=== PATIENT | male | born 1955 | race Caucasian/White ===

== ENCOUNTER 2024-01-12 17:06 | Emergency (ER) | payer BC, MEDICARE ==
[2024-01-12 17:42] VITALS: TEMP 98.3
[2024-01-12 18:18] LABS: Basophils # (A) 0.1 k/uL (0-0.2); Basophils % (A) 1 %; Eosinophils # (A) 0.3 k/uL (0-0.7); Eosinophils % (A) 4 %; HCT 43.6 % (39.0-53.0); HGB 14.7 gm/dL (13.0-17.5); Lymphocytes # (A) 1.9 k/uL (1.0-4.8); Lymphocytes % (A) 30 %; MCHC 33.7 g/dL (31.0-37.0); MCV 95.1 fL (80.0-100.0); Mean Platelet Volume 9.6; Monocytes # (A) 0.5 k/uL (0-1.0); Monocytes % (A) 7 %; Neutrophils # (A) 3.6 k/uL (1.3-7.7); Neutrophils % (A) 56 %; Platelet Count 166 k/uL (150-450); RBC 4.59 m/uL (4.30-5.90); WBC 6.4 k/uL (3.8-10.6)
[2024-01-12 18:27] LABS: ALT 26 U/L (4-49); AST 41 U/L (17-59); African American GFR (CKD) 85 (>60 ml/min/1.73 sqM); Albumin 4.6 g/dL (3.5-5.0); Alkaline Phosphatase 200 U/L (38-126); Anion Gap 8 mmol/L; Blood Urea Nitrogen 16 mg/dL (9-20); Calcium 9.2 mg/dL (8.4-10.2); Carbon Dioxide 26 mmol/L (22-30); Chloride 104 mmol/L (98-107); Glucose 96 mg/dL (74-99); Non-African American GFR(CKD) 74 (>60 ml/min/1.73 sqM); Potassium 4.2 mmol/L (3.5-5.1); Sodium 138 mmol/L (137-145); Total Bilirubin 0.7 mg/dL (0.2-1.3)
[2024-01-12] MEDS: hydrALAZINE HCL 20 MG/ML 1 ML VIAL IVP STA ×2 (19:29→20:22)
--- NOTE | 2024-01-12 21:06 | ED ---
General Adult HPI - General Chief complaint: Recheck/Abnormal Lab/Rx Stated complaint: Heart pulpitations Time Seen by Provider: 01/12/24 17:15 Source: patient Mode of arrival: ambulatory Limitations: no limitations - History of Present Illness Initial comments: 68-year-old male who presents to the emergency department from urgent care. Reports that he took his blood pressure at home and it was high. He went into urgent care who recommended that he come to the emergency department. States that he usually has well-controlled blood pressure. He takes lisinopril 10 mg. Today he took a second dose when his blood pressure was high before he came into the emergency department. He was going to go through his primary care doctor however they did not have any appointments today to see him. Patient denies any associated headaches, chest pain. No changes in his urination. No fevers or chills. Denies shortness of breath. Denies any lower extremity swelling. No other alleviating, precipitating or modifying factors - Related Data Home Medications Medication Instructions Recorded Confirmed Ascorbic Acid [Vitamin C] 500 mg PO DAILY 01/12/24 01/12/24 Atorvastatin [Lipitor] 20 mg PO DAILY 01/12/24 01/12/24 Magnesium 250 mg PO DAILY 01/12/24 01/12/24 Potassium Gluconate 99 mg PO DAILY 01/12/24 01/12/24 Super B 1 tab PO DAILY 01/12/24 01/12/24 lisinopriL [Zestril] 10 mg PO DAILY 01/12/24 01/12/24 Previous Rx's Medication Instructions Recorded amLODIPine [Norvasc] 5 mg PO DAILY #30 tab 01/12/24 Allergies Allergy/AdvReac Type Severity Reaction Status Date / Time Tetanus Vaccines and Toxoid Allergy Swelling Verified 01/12/24 17:48 Review of Systems ROS Statement: Those systems with pertinent positive or pertinent negative responses have been documented in the HPI. ROS Other: All systems not noted in ROS Statement are negative. Past Medical History Past Medical History: Hypertension History of Any Multi-Drug Resistant Organisms: None Reported Past Surgical History: Cholecystectomy, Prostate Surgery Past Psychological History: No Psychological Hx Reported Smoking Status: Never smoker Past Alcohol Use History: None Reported Past Drug Use History: None Reported General Exam Limitations: no limitations General appearance: alert, in no apparent distress Head exam: Present: atraumatic, normocephalic, normal inspection Eye exam: Present: normal appearance, PERRL, EOMI. Absent: scleral icterus, conjunctival injection, periorbital swelling ENT exam: Present: normal exam, mucous membranes moist Neck exam: Present: normal inspection. Absent: tenderness, meningismus, lymphadenopathy Respiratory exam: Present: normal lung sounds bilaterally. Absent: respiratory distress, wheezes, rales, rhonchi, stridor Cardiovascular Exam: Present: regular rate, normal rhythm, normal heart sounds. Absent: systolic murmur, diastolic murmur, rubs, gallop, clicks GI/Abdominal exam: Present: soft, normal bowel sounds. Absent: distended, tenderness, guarding, rebound, rigid Extremities exam: Present: normal inspection, full ROM, normal capillary refill. Absent: tenderness, pedal edema, joint swelling, calf tenderness Back exam: Present: normal inspection Neurological exam: Present: alert, oriented X3, CN II-XII intact Psychiatric exam: Present: normal affect, normal mood Skin exam: Present: warm, dry, intact, normal color. Absent: rash Course Vital Signs 01/12/24 01/12/24 01/12/24 17:12 18:50 19:31 Temperature 98.3 F Pulse Rate 77 75 66 Respiratory 18 18 19 Rate Blood Pressure 203/119 192/102 184/101 O2 Sat by Pulse 99 96 95 Oximetry 01/12/24 01/12/24 20:20 21:32 Temperature Pulse Rate 66 75 Respiratory 19 18 Rate Blood Pressure 179/105 161/95 O2 Sat by Pulse 98 Oximetry Medical Decision Making - Medical Decision Making Was pt. sent in by a medical professional or institution (, PA, EXCAVATOR BACKHOE OPERATOR, urgent care, hospital, or longterm...) When possible be specific @ -Patient was sent in from urgent care Did you speak to anyone other than the patient for history (EMS, parent, family, police, friend...)? What history was obtained from this source @ -No Did you review nursing and triage notes (agree or disagree)? Why? @ -I reviewed and agree with nursing and triage notes Were old charts reviewed (outside hosp., previous admission, EMS record, old EKG, old radiological studies, urgent care reports/EKG's, longterm records)? Report findings @ -No old charts were reviewed Differential Diagnosis (chest pain, altered mental status, abdominal pain women, abdominal pain men, vaginal bleeding, weakness, fever, dyspnea, syncope, headache, dizziness, GI bleed, back pain, seizure, CVA, palpatations, mental health, musculoskeletal)? @ -Accelerated hypertension, chronic hypertension, medication noncompliance, TN, acute kidney failure EKG interpreted by me (3pts min.). @ -Yes and demonstrates sinus rhythm with a rate of 88. VA interval 171. QRS 102. QTc of 410. No acute ST segment elevations or depressions X-rays interpreted by me (1pt min.). @ -None done CT interpreted by me (1pt min.). @ -None done U/S interpreted by me (1pt. min.). @ -None done What testing was considered but not performed or refused? (CT, X-rays, U/S, labs)? Why? @ -None What meds were considered but not given or refused? Why? @ -None Did you discuss the management of the patient with other professionals (professionals i.e. , PA, EXCAVATOR BACKHOE OPERATOR, lab, RT, psych nurse, social psychologist, brick paver, teacher, disbursing officer, caseworker intake)? Give summary @ -No Was smoking cessation discussed for >3mins.? @ -No Was critical care preformed (if so, how long)? @ -No Were there social determinants of health that impacted care today? How? (Homelessness, low income, unemployed, alcoholism, drug addiction, transportation, low edu. Level, literacy, decrease access to med. care, residential, rehab)? @ -No Was there de-escalation of care discussed even if they declined (Discuss DNR or withdrawal of care, Hospice)? DNR status @ -No What co-morbidities impacted this encounter? (DM, HTN, Smoking, COPD, CAD, Cancer, CVA, ARF, Chemo, Hep., AIDS, mental health diagnosis, sleep apnea, morbid obesity)? @ -Hypertension Was patient admitted / discharged? Hospital course, mention meds given and route, prescriptions, significant lab abnormalities, going to OR and other pertinent info. @ -Upon arrival patient was placed into room 2. Thorough history and physical exam was performed. Patient presents with asymptomatic hypertension. Laborator y studies were conducted and reviewed. Results are discussed with the patient. He was given hydralazine with improvement in his blood pressure. Patient is instructed that he may take up to 40 mg of his lisinopril in a day. I will additionally write him a prescription for amlodipine as he may require 2 agents for his high blood pressure. I recommend that he follow-up with his primary care doctor for further workup to include echo, carotid Doppler and renal artery Doppler. His primary care needs to be made aware of his recent medication changes which were done by myself. Instructed not to reduce his blood pressure less than 130/90. Instructed to return should he have any symptoms. Patient was agreeable to plan he was discharged in stable condition Undiagnosed new problem with uncertain prognosis? @ -No Drug Therapy requiring intensive monitoring for toxicity (Heparin, Nitro, Insu rosetta, Cardizem)? @ -No Were any procedures done? @ -No Diagnosis/symptom? @ -Accelerated hypertension, history of hypertension Acute, or Chronic, or Acute on Chronic? @ -Acute Uncomplicated (without systemic symptoms) or Complicated (systemic symptoms)? @ -Complicated Side effects of treatment? @ -No Exacerbation, Progression, or Severe Exacerbation? @ -No Poses a threat to life or bodily function? How? (Chest pain, [place], TN, pneumonia, PE, COPD, DKA, ARF, appy, cholecystitis, CVA, Diverticulitis, Homicidal, Suicidal, threat to staff... and all critical care pts) @ -No - Lab Data Result diagrams: 01/12/24 18:10 01/12/24 18:10 Lab Results 01/12/24 01/12/24 01/12/24 Range/Units 18:10 18:10 18:10 WBC 6.4 (3.8-10.6) k/uL RBC 4.59 (4.30-5.90) m/uL Hgb 14.7 (13.0-17.5) gm/dL Hct 43.6 (39.0-53.0) % MCV 95.1 (80.0-100.0) fL MCH 32.0 (25.0-35.0) pg MCHC 33.7 (31.0-37.0) g/dL RDW 13.0 (11.5-15.5) % Plt Count 166 (150-450) k/uL MPV 9.6 Neutrophils % 56 % Lymphocytes % 30 % Monocytes % 7 % Eosinophils % 4 % Basophils % 1 % Neutrophils # 3.6 (1.3-7.7) k/uL Lymphocytes # 1.9 (1.0-4.8) k/uL Monocytes # 0.5 (0-1.0) k/uL Eosinophils # 0.3 (0-0.7) k/uL Basophils # 0.1 (0-0.2) k/uL Sodium 138 (137-145) mmol/L Potassium 4.2 (3.5-5.1) mmol/L Chloride 104 (98-107) mmol/L Carbon Dioxide 26 (22-30) mmol/L Anion Gap 8 mmol/L BUN 16 (9-20) mg/dL Creatinine 1.04 (0.66-1.25) mg/dL Est GFR (CKD-EPI)AfAm 85 (>60 ml/min/1.73 sqM) Est GFR (CKD-EPI)NonAf 74 (>60 ml/min/1.73 sqM) Glucose 96 (74-99) mg/dL Calcium 9.2 (8.4-10.2) mg/dL Total Bilirubin 0.7 (0.2-1.3) mg/dL AST 41 (17-59) U/L ALT 26 (4-49) U/L Alkaline Phosphatase 200 H (38-126) U/L Troponin I <0.012 (0.000-0.034) ng/mL Total Protein 8.0 (6.3-8.2) g/dL Albumin 4.6 (3.5-5.0) g/dL Disposition Clinical Impression: Hypertension Disposition: HOME SELF-CARE Condition: Stable Instructions (If sedation given, give patient instructions): Hypertension (ED) Additional Instructions: You may take up to 40 mg of lisinopril in a day. If your blood pressure remains above 150/90 on the first medication, I recommend that you begin taking the amlodipine. Follow-up with your primary care doctor. I recommend renal artery ultrasound, echo and carotid Dopplers. Return for any new or worsening symptoms Prescriptions: amLODIPine [Norvasc] 5 mg PO DAILY #30 tab Is patient prescribed a controlled substance at d/c from ED?: No Referrals: Alva Arceo MD [Primary Care Provider] - 1-2 days Time of Disposition: 21:06
[2024-01-12 21:37] VITALS: BP 161/95; PULSE 75; RESP 18
== END 2024-01-12 21:49 | disposition home or self-care (01) ==
LOC: EC 17:06
DX: I10 Essential (primary) hypertension (principal); Z88.7 Allergy status to serum and vaccine
CPT/HCPCS: 99284; 96374; 96376; 36415; 80053; 84484; 85025; J0360; 93005

== ENCOUNTER → 2024-01-30 | Outpatient (CLI) | payer BC, MEDICARE ==
--- NOTE | 2024-01-30 15:28 | NM ---
EXAMINATION TYPE: NM bone scan whole body DATE OF EXAM: 01/30/2024 2:01 PM CLINICAL INDICATION:Male, 68 years old with history of R79.9 ABNORMAL FINDING OF BLOOD CHEMISTRY, UNS PECI; COMPARISON: None TECHNIQUE: Intravenous administration 23.7 mCi Tc 99m MDP followed by multiple scintigraphic images o f the appendicular and axial skeleton. Images acquired 5 hours post injection. FINDINGS: Abnormal uptake within the right first rib somewhat diffusely as well as the what is thought to be th e L4 vertebral body. There is increased uptake within the bilateral shoulder, sternoclavicular, and sacroiliac joints co nsistent with degenerative changes. No other photopenic areas or areas of increased activity are iden tified. Degeneration uptake in the and around the first digit metatarsal phalangeal joint. Physiologic radiotracer activity is demonstrated in the kidneys and bladder. IMPRESSION: Abnormal uptake diffusely within the right first rib and within the suspected L4 vertebrae. Correlate with history of malignancy. Correlate with abnormal blood work findings. Consider further evaluation with cross-sectional imaging.
== END | disposition home or self-care (01) ==
LOC: RADNMMAIN 06:57
PROVIDERS: ATTEND Family Medicine
DX: R79.9 Abnormal finding of blood chemistry, unspecified (principal)
CPT/HCPCS: 78306; A9503